=== PATIENT | male | born 1950 | race Caucasian/White ===

== ENCOUNTER 2022-03-22 12:46 | Emergency (ER) | payer OTHER, MEDICARE ==
[2022-03-22] MEDS ORDERED: Sodium Chloride 0.9% 100 ML IV SCH (14:15)
[2022-03-22] MEDS ORDERED: Iopamidol 755 Mg/ML 100 ML Bottle IV SCH (14:15)
== END 2022-03-22 17:52 | disposition other institution (70) ==
LOC: JP.ED 12:46
DX: I69.320 Aphasia following cerebral infarction (principal); E78.00 Pure hypercholesterolemia, unspecified; I10 Essential (primary) hypertension; Z88.5 Allergy status to narcotic agent
CPT/HCPCS: 36415; 70450; 70496; 80048; 85025; 99285; 99285-25; J3490; Q9967